=== PATIENT | male | born 1995 | race Caucasian/White ===

== ENCOUNTER → 2022-11-05 12:07 | Outpatient (BNVA) | payer OTHER, SELFPAY | PROVIDERS: Family Provider Nurse Practitioner Family; Visit Provider Nurse Practitioner Family | DX: R39.89 Other symptoms and signs involving the genitourinary system (principal); N48.89 Other specified disorders of penis; N50.819 Testicular pain, unspecified | CPT/HCPCS: 81000; 87086; 87491; 87591 ==